=== PATIENT | male | born 1960 | race African-American/Black ===

== ENCOUNTER 2017-09-20 11:19 | Emergency (ER) | payer BC | END 2017-09-20 11:50 | disposition home or self-care (01) | LOC: NAV ERS 11:19 | DX: J06.9 Acute upper respiratory infection, unspecified (principal); M10.9 Gout, unspecified; I10 Essential (primary) hypertension; Z87.891 Personal history of nicotine dependence | CPT/HCPCS: 99283 ==

== ENCOUNTER 2017-12-15 21:03 | Emergency (ER) | payer BC ==
[2017-12-15] MEDS ORDERED: Bupivacaine 0.5% 10 ML VIAL ONE (21:15)
[2017-12-15] MEDS ORDERED: Ibuprofen 800 MG TAB ONE (21:26)
== END 2017-12-15 21:29 | disposition home or self-care (01) ==
LOC: NAV ERS 21:03
DX: K02.9 Dental caries, unspecified (principal); I10 Essential (primary) hypertension; M10.9 Gout, unspecified; Z87.891 Personal history of nicotine dependence
CPT/HCPCS: 99282; J3490

== ENCOUNTER 2017-12-22 18:30 | Emergency (ER) | payer BC ==
[2017-12-22] MEDS ORDERED: Ibuprofen 800 MG TAB ONE (18:54)
== END 2017-12-22 19:06 | disposition home or self-care (01) ==
LOC: NAV ERS 18:30
DX: K04.7 Periapical abscess without sinus (principal); I10 Essential (primary) hypertension; M10.9 Gout, unspecified; Z87.891 Personal history of nicotine dependence
CPT/HCPCS: 99283

== ENCOUNTER 2017-12-30 16:32 | Emergency (ER) | payer BC ==
[2017-12-30] MEDS ORDERED: Furosemide 40 MG/4 ML VIAL ONE (18:02)
--- NOTE | 2017-12-30 18:02 | RAD ---
FRONTAL AND LATERAL IMAGING CHEST 12/30/17 COMPARISON: 09/23/13 HISTORY: Cold-like symptoms with cough since Tuesday. FINDINGS: Old left sided rib fractures are suspected. Pulmonary vascular congestion is noted, mild. No pneumoth orax or pleural fluid is seen and there is no focal consolidation or alveolar edema. IMPRESSION: Mild pulmonary vascular congestion with no focal consolidation or alveolar edema. POS: [facility]
[2017-12-30 18:40] LABS: ALT (SGPT) 31 U/L (8-55); AST (SGOT) 24 U/L (5-34); Albumin 4.3 g/dL (3.5-5.0); Alkaline Phosphatase 85 U/L (40-150); Anion Gap 14 mmol/L (10-20); BUN (Urea Nitrogen) 15 mg/dL (8.4-25.7); Bilirubin, Total 0.4 mg/dL (0.2-1.2); CK (CPK) 373 U/L (30-200); Calc. Creatinine Clearance 0 mL/min (70-130); Calcium 9.8 mg/dL (7.8-10.44); Carbon Dioxide 26 mmol/L (22-29); Chloride 105 mmol/L (98-107); Estimated GFR-MDRD 88; Globulin 3.3 g/dL (2.4-3.5); Glucose 96 mg/dL (70-105); Protein, Total 7.6 g/dL (6.0-8.3); Sodium 141 mmol/L (136-145)
[2017-12-30 18:41] LABS: CKMB 3.9 ng/mL (0-6.6); Troponin I 0.017 ng/mL (< 0.028)
[2017-12-30 18:45] LABS: Hemoglobin 12.6 g/dL (14.0-18.0); Mean Corpuscular HGB CONC 32.6 g/dL (32.0-36.0); Mean Corpuscular Hemoglobin 29.5 pg (27.0-31.0); Mean Corpuscular Volume 90.7 fl (80.0-94.0); Mean Platelet Volume 7.8 fL (7.4-10.4); Platelet Count 199 thou/uL (130-400); Red Blood Cell (RBC) Count 4.26 mill/uL (4.70-6.10); White Blood Cell (WBC) Count 11.8 thou/uL (4.8-10.8)
[2017-12-30] MEDS ORDERED: Azithromycin 250 MG TAB ONE (19:17)
[2017-12-30 19:19] LABS: Band 4 % (5-11); Eosinophils 1 % (0-10); Hypochromia SLIGHT = 6-15 cells (100X) (0-5/hpf); Lymphocytes 15 % (21-51); MDiff Complete? YES; Monocytes 4 % (0-10); Neutrophil 76 % (42-75); PLT Morphology Comment Appears Adequate
[2017-12-30 19:34] LABS: Manual Diff?? YES
== END 2017-12-30 19:20 | disposition home or self-care (01) ==
LOC: NAV ERS 16:32
DX: J20.9 Acute bronchitis, unspecified (principal); I10 Essential (primary) hypertension; M10.9 Gout, unspecified; Z87.891 Personal history of nicotine dependence; Z79.899 Other long term (current) drug therapy
CPT/HCPCS: 71046; 80053; 82553; 83880; 84484; 85025; 85379; 87804; 93005; 94640; 96374; J1940; J7620

== ENCOUNTER 2018-01-12 19:02 | Emergency (ER) | payer BC ==
[2018-01-12] MEDS ORDERED: Naproxen 500 MG TAB ONE (19:28)
== END 2018-01-12 19:36 | disposition home or self-care (01) ==
LOC: NAV ERS 19:02
DX: M17.11 Unilateral primary osteoarthritis, right knee (principal); R00.0 Tachycardia, unspecified; I10 Essential (primary) hypertension; Z87.891 Personal history of nicotine dependence
CPT/HCPCS: 99282

== ENCOUNTER 2018-02-15 18:09 | Emergency (ER) | payer BC | END 2018-02-15 18:50 | disposition home or self-care (01) | LOC: NAV ERS 18:09 | DX: M17.11 Unilateral primary osteoarthritis, right knee (principal); G89.29 Other chronic pain; I10 Essential (primary) hypertension; Z79.899 Other long term (current) drug therapy; Z87.891 Personal history of nicotine dependence | CPT/HCPCS: 99283 ==

== ENCOUNTER 2018-04-27 03:45 | Emergency (ER) | payer BC | END 2018-04-27 04:04 | disposition home or self-care (01) | LOC: NAV ERS 03:45 | DX: M25.562 Pain in left knee (principal); I10 Essential (primary) hypertension; M10.9 Gout, unspecified; Z87.891 Personal history of nicotine dependence | CPT/HCPCS: 99283 ==

== ENCOUNTER 2018-05-29 08:27 | Emergency (ER) | payer BC | END 2018-05-29 09:34 | disposition home or self-care (01) | LOC: NAV ERS 08:27 | DX: M25.561 Pain in right knee (principal); I10 Essential (primary) hypertension; M10.9 Gout, unspecified; Z87.891 Personal history of nicotine dependence | CPT/HCPCS: 99283 ==

== ENCOUNTER 2018-11-29 08:05 | Emergency (ER) | payer BC | END 2018-11-29 08:48 | disposition home or self-care (01) | LOC: NAV ERS 08:05 | DX: R10.13 Epigastric pain (principal); I10 Essential (primary) hypertension; Z87.891 Personal history of nicotine dependence | CPT/HCPCS: 99283 ==

== ENCOUNTER 2019-03-16 20:01 | Emergency (ER) | payer BC ==
[2019-03-16] MEDS ORDERED: predniSONE 20 MG TAB ONE (20:39)
== END 2019-03-16 20:44 | disposition home or self-care (01) ==
LOC: NAV ERS 20:01
DX: J30.9 Allergic rhinitis, unspecified (principal); I10 Essential (primary) hypertension; M10.9 Gout, unspecified; M19.90 Unspecified osteoarthritis, unspecified site; Z87.891 Personal history of nicotine dependence
CPT/HCPCS: 99283; J7512

== ENCOUNTER 2019-07-12 17:20 | Emergency (ER) | payer BC ==
[2019-07-12 17:55] LABS: Bilirubin Negative (Negative); Blood, Urine Trace (Negative); Clarity Clear (Clear); Glucose, Urine (Dipstick) Negative (Negative); Leukocyte Negative (Negative); Nitrite Negative (Negative); Protein, Urine (Dipstick) Negative (Neg-Trace); Urobilinogen 0.2 mg/dL (Less than 2)
[2019-07-12 18:14] LABS: #Basophils 0.1 thou/uL (0.0-0.2); #Eosinphils 0.2 thou/uL (0.0-0.7); #Lymphocytes 1.5 thou/uL (1.20-3.40); #Monocytes 0.7 thou/uL (0.11-0.59); #Neutrophils 4.3 thou/uL (1.40-6.50); %Basophils 0.9 % (0.0-1.0); %Eosinophils 2.5 % (0.0-10.0); %Lymphocytes 22.2 % (21.0-51.0); %Monocytes 10.5 % (0.0-10.0); %Neutrophils 63.9 % (42.0-75.0); Hemoglobin 14.3 g/dL (14.0-18.0); Mean Corpuscular HGB CONC 32.2 g/dL (32.0-36.0); Mean Corpuscular Hemoglobin 29.9 pg (27.0-31.0); Mean Corpuscular Volume 92.9 fL (78.0-98.0); Mean Platelet Volume 8.8 fL (7.4-10.4); Platelet Count 234 thou/uL (130-400); RBC Distribution Width 12.1 % (11.5-14.5); Red Blood Cell (RBC) Count 4.77 mill/uL (4.70-6.10); White Blood Cell (WBC) Count 6.7 thou/uL (4.8-10.8)
[2019-07-12 18:16] LABS: Bacteria/HPF Rare-Few HPF (None Seen); RBC/HPF 0-3 HPF (0-3); WBC/HPF 0-3 HPF (0-3)
--- NOTE | 2019-07-12 18:28 | RAD ---
TWO VIEWS OF THE CHEST: 07/12/19 COMPARISON: 12/30/17 HISTORY: Cough and congestion with pain. FINDINGS: No pneumothorax, pleural fluid, focal consolidation, or alveolar edema. Heart and mediastinal contour s are stable. Stable increased linear interstitial density. Old left sided rib fractures are again se en. IMPRESSION: No acute findings. Chronic findings as above. POS: [facility]
== END 2019-07-12 18:29 | disposition home or self-care (01) ==
LOC: NAV ERS 17:20
DX: J01.90 Acute sinusitis, unspecified (principal); I10 Essential (primary) hypertension; M10.9 Gout, unspecified; M19.90 Unspecified osteoarthritis, unspecified site; Z87.891 Personal history of nicotine dependence
CPT/HCPCS: 71046; 81003; 81015; 85025; 87804

== ENCOUNTER 2019-08-01 04:00 | Emergency (ER) | payer BC ==
[2019-08-01 04:28] LABS: #Eosinphils 0.1 thou/uL (0.0-0.7); #Lymphocytes 1.3 thou/uL (1.20-3.40); #Monocytes 0.5 thou/uL (0.11-0.59); #Neutrophils 3.2 thou/uL (1.40-6.50); %Basophils 0.2 % (0.0-1.0); %Eosinophils 2.3 % (0.0-10.0); %Lymphocytes 24.5 % (21.0-51.0); %Monocytes 9.5 % (0.0-10.0); %Neutrophils 63.5 % (42.0-75.0); Hemoglobin 13.4 g/dL (14.0-18.0); Mean Corpuscular HGB CONC 32.4 g/dL (32.0-36.0); Mean Corpuscular Hemoglobin 30.1 pg (27.0-31.0); Mean Corpuscular Volume 92.8 fL (78.0-98.0); Mean Platelet Volume 7.6 fL (7.4-10.4); Platelet Count 207 thou/uL (130-400); RBC Distribution Width 12.5 % (11.5-14.5); Red Blood Cell (RBC) Count 4.45 mill/uL (4.70-6.10); White Blood Cell (WBC) Count 5.1 thou/uL (4.8-10.8)
[2019-08-01 04:41] LABS: ALT (SGPT) 39 U/L (8-55); AST (SGOT) 32 U/L (5-34); Albumin 4.4 g/dL (3.5-5.0); Alkaline Phosphatase 79 U/L (40-110); Anion Gap 15 mmol/L (10-20); BUN (Urea Nitrogen) 21 mg/dL (8.4-25.7); Bilirubin, Total 0.2 mg/dL (0.2-1.2); Calc. Creatinine Clearance 0 mL/min (70-130); Calcium 9.8 mg/dL (7.8-10.44); Carbon Dioxide 23 mmol/L (22-29); Chloride 107 mmol/L (98-107); Estimated GFR-MDRD Greater than 90; Globulin 3.2 g/dL (2.4-3.5); Glucose 129 mg/dL (70-105); Potassium 4.1 mmol/L (3.5-5.1); Protein, Total 7.6 g/dL (6.0-8.3); Sodium 141 mmol/L (136-145)
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
== END 2019-08-01 06:30 | disposition home or self-care (01) ==
LOC: NAV ERS 04:00
DX: S20.219A Contusion of unspecified front wall of thorax, initial encounter (principal); I10 Essential (primary) hypertension; M10.9 Gout, unspecified; M19.90 Unspecified osteoarthritis, unspecified site; Z87.891 Personal history of nicotine dependence; V89.2XXA Person injured in unspecified motor-vehicle accident, traffic, initial encounter
CPT/HCPCS: 71045; 71260; 72125; 80053; 84484; 85025; 93005

== ENCOUNTER 2019-09-14 12:42 | Emergency (ER) | payer BC ==
[2019-09-14] MEDS ORDERED: Ketorolac Tromethamine 60 MG/2 ML VIAL ONE (13:42)
[2019-09-14] MEDS ORDERED: predniSONE 20 MG TAB ONE (13:42)
[2019-09-14] MEDS ORDERED: Acetaminophen/Codeine 30-300mg Tablet ONE (13:42)
== END 2019-09-14 14:17 | disposition home or self-care (01) ==
LOC: NAV ERS 12:42
DX: M10.9 Gout, unspecified (principal); I10 Essential (primary) hypertension; Z87.891 Personal history of nicotine dependence
CPT/HCPCS: 96372; 99283; J1885; J7512

== ENCOUNTER 2021-03-19 17:12 | Emergency (ER) | payer BC ==
[2021-03-20 07:34] LABS: SARS-CoV-2 PCR by NAA Not Detected (NotDetected)
== END 2021-03-19 17:45 | disposition home or self-care (01) ==
LOC: NAV ERS 17:12
DX: Z20.822 Contact with and (suspected) exposure to COVID-19 (principal); I10 Essential (primary) hypertension; E11.9 Type 2 diabetes mellitus without complications; Z87.891 Personal history of nicotine dependence; Z79.84 Long term (current) use of oral hypoglycemic drugs
CPT/HCPCS: 99283; U0003; U0005

== ENCOUNTER 2021-04-11 22:52 | Emergency (ER) | payer BC ==
[2021-04-11] MEDS ORDERED: Naproxen 500 MG TAB ONE (23:47)
== END 2021-04-11 23:55 | disposition home or self-care (01) ==
LOC: NAV ERS 22:52
DX: S86.112A Strain of other muscle(s) and tendon(s) of posterior muscle group at lower leg level, left leg, initial encounter (principal); I10 Essential (primary) hypertension; E11.9 Type 2 diabetes mellitus without complications; Z87.891 Personal history of nicotine dependence; Z79.84 Long term (current) use of oral hypoglycemic drugs; Z79.899 Other long term (current) drug therapy; X58.XXXA Exposure to other specified factors, initial encounter
CPT/HCPCS: 99283

== ENCOUNTER 2021-07-31 10:54 | Emergency (ER) | payer BC ==
[~2021-07-31 10:54] MED LIST: Iopamidol 370 76% 100 ML VIAL ONE
[2021-07-31] MEDS ORDERED: Sodium Chloride 0.9% 1,000 ML ONE ×3 (11:21→17:54)
[2021-07-31] MEDS ORDERED: Pantoprazole 40 MG VIAL ONE (11:36)
[2021-07-31 11:47] LABS: ALT (SGPT) 47 U/L (8-55); AST (SGOT) 36 U/L (5-34); Alkaline Phosphatase 83 U/L (40-110); Anion Gap 14 mmol/L (10-20); BUN (Urea Nitrogen) 18 mg/dL (8.4-25.7); Bilirubin, Total 0.4 mg/dL (0.2-1.2); Calc. Creatinine Clearance 0 mL/min (70-130); Calcium 9.4 mg/dL (7.8-10.44); Carbon Dioxide 25 mmol/L (22-29); Chloride 102 mmol/L (98-107); Globulin 4.3 g/dL (2.4-3.5); Glucose 93 mg/dL (70-105); Lipase 20 U/L (8-78); Potassium 4.5 mmol/L (3.5-5.1); Protein, Total 8.3 g/dL (6.0-8.3); Sodium 136 mmol/L (136-145)
[2021-07-31 11:51] LABS: Bilirubin Negative (Negative); Clarity Clear (Clear); Glucose, Urine (Dipstick) Negative (Negative); Ketone, Urine Negative (Negative); Leukocyte Negative (Negative); Nitrite Negative (Negative); Protein, Urine (Dipstick) 30 mg/dL (Neg-Trace); Specific Gravity, Urine 1.025 (1.005-1.030); Urobilinogen 0.2 mg/dL (Less than 2)
[2021-07-31 12:01] LABS: Blood, Urine Negative (Negative)
[2021-07-31 12:03] LABS: Bacteria/HPF Rare-Few HPF (None Seen); RBC/HPF None Seen HPF (0-3); Squamous Epithelial 0-3 HPF (0-3); WBC/HPF None Seen HPF (0-3)
[2021-07-31 12:24] LABS: #Basophils 0.1 thou/uL (0.0-0.2); #Monocytes 1.2 thou/uL (0.11-0.59); #Neutrophils 9.3 thou/uL (1.40-6.50); %Basophils 0.9 % (0.0-1.0); %Eosinophils 0.2 % (0.0-10.0); %Lymphocytes 15.9 % (21.0-51.0); %Monocytes 9.4 % (0.0-10.0); %Neutrophils 73.5 % (42.0-75.0); Mean Corpuscular HGB CONC 32.4 g/dL (32.0-36.0); Mean Corpuscular Hemoglobin 30.5 pg (27.0-31.0); Mean Corpuscular Volume 94.1 fL (78.0-98.0); Mean Platelet Volume 8.5 fL (7.4-10.4); Platelet Count 187 thou/uL (130-400); RBC Distribution Width 11.9 % (11.5-14.5); Red Blood Cell (RBC) Count 3.92 mill/uL (4.70-6.10); White Blood Cell (WBC) Count 12.7 thou/uL (4.8-10.8)
[2021-07-31] MEDS ORDERED: Piperacillin/Tazobactam 3.375 GM VIAL ONE (12:46)
[2021-07-31] MEDS ORDERED: Sodium Chloride 0.9% 100 ML ONE (12:46)
[2021-07-31] MEDS ORDERED: Ondansetron PF 4 MG/2 ML Vial ONE (13:27)
[2021-07-31 16:03] LABS: SARS-CoV-2 NAA Rapid Test DETECTED (NotDetected)
[2021-07-31] MEDS ORDERED: metFORMIN 500 MG TAB ONE (19:56)
[2021-08-01] MEDS ORDERED: metFORMIN 500 MG TAB ONE (08:02)
[2021-08-01] MEDS ORDERED: metFORMIN 500 MG TAB PO SCH (08:30)
[2021-08-01] MEDS ORDERED: glipiZIDE 5 MG TAB PO SCH (08:30)
== END 2021-07-31 11:08 | disposition short-term general hospital (02) ==
LOC: NAV ERS 10:54
DX: U07.1 COVID-19 (principal); R00.0 Tachycardia, unspecified; N28.1 Cyst of kidney, acquired; I10 Essential (primary) hypertension; E11.9 Type 2 diabetes mellitus without complications; E78.00 Pure hypercholesterolemia, unspecified; M19.90 Unspecified osteoarthritis, unspecified site; Z87.891 Personal history of nicotine dependence; Z79.84 Long term (current) use of oral hypoglycemic drugs; Z79.899 Other long term (current) drug therapy
CPT/HCPCS: 74177; 80053; 81003; 81015; 83605; 83690; 85025; 87040; 96365; 96367; 96375; C9113; J1956; J2405; J2543; J3490; J7050; Q9967; U0002

== ENCOUNTER 2021-08-07 12:43 | Emergency (ER) | payer BC | END 2021-08-07 13:15 | disposition home or self-care (01) | LOC: NAV ERS 12:43 | DX: U07.1 COVID-19 (principal); I10 Essential (primary) hypertension; M19.90 Unspecified osteoarthritis, unspecified site; M10.9 Gout, unspecified; Z86.16 Personal history of COVID-19; E11.9 Type 2 diabetes mellitus without complications; Z87.891 Personal history of nicotine dependence; Z79.84 Long term (current) use of oral hypoglycemic drugs; Z79.899 Other long term (current) drug therapy | CPT/HCPCS: 99283 ==

== ENCOUNTER 2022-04-05 04:24 | Emergency (ER) | payer BC ==
[2022-04-05] MEDS ORDERED: Acetaminophen 500 MG TAB ONE (04:59)
[2022-04-05] MEDS ORDERED: Ketorolac Tromethamine 60 MG/2 ML VIAL ONE (04:59)
[2022-04-05 05:28] LABS: #Basophils 0.1 thou/uL (0.0-0.2); #Eosinphils 0.2 thou/uL (0.0-0.7); #Lymphocytes 2.4 thou/uL (1.20-3.40); #Monocytes 0.7 thou/uL (0.11-0.59); #Neutrophils 4.4 thou/uL (1.40-6.50); %Eosinophils 2.6 % (0.0-10.0); %Monocytes 9.1 % (0.0-10.0); %Neutrophils 56.4 % (42.0-75.0); Hemoglobin 12.7 g/dL (14.0-18.0); Mean Corpuscular HGB CONC 30.9 g/dL (32.0-36.0); Mean Corpuscular Hemoglobin 29.9 pg (27.0-31.0); Mean Corpuscular Volume 96.7 fL (78.0-98.0); Mean Platelet Volume 8.2 fL (7.4-10.4); Platelet Count 202 thou/uL (130-400); RBC Distribution Width 12.4 % (11.5-14.5); Red Blood Cell (RBC) Count 4.25 mill/uL (4.70-6.10); White Blood Cell (WBC) Count 7.9 thou/uL (4.8-10.8)
[2022-04-05 05:37] LABS: Anion Gap 15 mmol/L (10-20); BUN (Urea Nitrogen) 19 mg/dL (8.4-25.7); Calc. Creatinine Clearance 0 mL/min (70-130); Calcium 9.3 mg/dL (7.8-10.44); Carbon Dioxide 24 mmol/L (22-29); Chloride 106 mmol/L (98-107); Estimated GFR 93; Glucose 127 mg/dL (70-105); Potassium 4.3 mmol/L (3.5-5.1); Sodium 141 mmol/L (136-145)
== END 2022-04-05 06:17 | disposition home or self-care (01) ==
LOC: NAV ERS 04:24
DX: M17.11 Unilateral primary osteoarthritis, right knee (principal); E11.9 Type 2 diabetes mellitus without complications; E78.5 Hyperlipidemia, unspecified; I10 Essential (primary) hypertension; Z87.891 Personal history of nicotine dependence; Z79.899 Other long term (current) drug therapy; Z79.84 Long term (current) use of oral hypoglycemic drugs
CPT/HCPCS: 36415; 80048; 85025; 85379; 96372; 99283; J1885

== ENCOUNTER 2023-06-27 13:31 | Emergency (ER) | payer BC | END 2023-06-27 14:40 | disposition home or self-care (01) | LOC: NAV ERS 13:31 | DX: J06.9 Acute upper respiratory infection, unspecified (principal); E86.0 Dehydration; E11.9 Type 2 diabetes mellitus without complications; E78.5 Hyperlipidemia, unspecified; I10 Essential (primary) hypertension; Z87.891 Personal history of nicotine dependence; Z79.899 Other long term (current) drug therapy; Z79.84 Long term (current) use of oral hypoglycemic drugs | CPT/HCPCS: 99283 ==

== ENCOUNTER 2023-08-28 06:29 | Emergency (ER) | payer BC ==
[2023-08-28] MEDS ORDERED: Indomethacin 25 mg Capsule ONE (07:05)
== END 2023-08-28 07:09 | disposition home or self-care (01) ==
LOC: NAV ERS 06:29
DX: M10.9 Gout, unspecified (principal); E11.9 Type 2 diabetes mellitus without complications; I10 Essential (primary) hypertension; E78.00 Pure hypercholesterolemia, unspecified; Z79.899 Other long term (current) drug therapy; Z87.891 Personal history of nicotine dependence; Z79.84 Long term (current) use of oral hypoglycemic drugs
CPT/HCPCS: 99283

== ENCOUNTER → 2024-06-13 | Emergency (ER) | payer BC ==
[2024-06-14 23:42] LABS: ALT (SGPT) 26 U/L (8-55); AST (SGOT) 25 U/L (5-34); Alkaline Phosphatase 83 U/L (40-110); Anion Gap 13 mmol/L (10-20); BUN (Urea Nitrogen) 19 mg/dL (8.4-25.7); Bilirubin, Total 0.3 mg/dL (0.2-1.2); Calc. Creatinine Clearance 0 mL/min (70-130); Calcium 9.7 mg/dL (7.6-10.4); Carbon Dioxide 25 mmol/L (23-31); Chloride 103 mmol/L (98-107); Estimated GFR 67; Globulin 3.7 g/dL (2.4-3.5); Glucose 107 mg/dL (80-115); Potassium 4.2 mmol/L (3.5-5.1); Protein, Total 7.7 g/dL (5.8-8.1); Sodium 137 mmol/L (136-145)
[2024-06-14 23:43] LABS: %Eosinophils 3.6 % (0.0-10.0); %Lymphocytes 19.8 % (21.0-51.0); %Monocytes 9.7 % (0.0-10.0); Hematocrit 37.6 % (42.0-52.0); Hemoglobin 12.4 g/dL (14.0-18.0); Mean Corpuscular HGB CONC 33.1 g/dL (32.0-36.0); Mean Corpuscular Hemoglobin 30.1 pg (27.0-31.0); Mean Platelet Volume 7.7 fL (7.4-10.4); Platelet Count 200 10x3/uL (130-400); RBC Distribution Width 12.5 % (11.5-14.5); Red Blood Cell (RBC) Count 4.13 mill/uL (4.70-6.10)
[2024-06-14 23:44] LABS: #Basophils 0.1 thou/uL (0.0-0.2); #Eosinophils 0.3 thou/uL (0.0-0.7); #Lymphocytes 1.8 thou/uL (1.20-3.40); #Monocytes 0.9 thou/uL (0.11-0.59); #Neutrophils 5.9 thou/uL (1.40-6.50); %Basophils 0.1 % (0.0-1.0); Lactic Acid 1.47 mmol/L (0.5-2.2)
== END ==
LOC: NAV ERS 21:46
DX: E86.0 Dehydration (principal); R05.9 Cough, unspecified
CPT/HCPCS: 71046; 80053; 83605; 85025; 87400; 87426; 99283

== ENCOUNTER 2025-03-06 16:18 | Emergency (ER) | payer BC ==
[2025-03-06] MEDS ORDERED: Ibuprofen 800 MG TAB ONE (16:51)
== END 2025-03-06 16:55 | disposition home or self-care (01) ==
LOC: NAV ERS 16:18
DX: M43.6 Torticollis (principal); E11.9 Type 2 diabetes mellitus without complications; E78.00 Pure hypercholesterolemia, unspecified; I10 Essential (primary) hypertension; Z79.84 Long term (current) use of oral hypoglycemic drugs; Z79.899 Other long term (current) drug therapy
CPT/HCPCS: 99283

== ENCOUNTER 2025-06-20 17:10 | Emergency (ER) | payer BC ==
[2025-06-20] MEDS ORDERED: Acetaminophen 500 MG TAB ONE (18:20)
== END 2025-06-20 18:29 | disposition home or self-care (01) ==
LOC: NAV ERS 17:10
DX: M17.12 Unilateral primary osteoarthritis, left knee (principal); I10 Essential (primary) hypertension; E11.9 Type 2 diabetes mellitus without complications; E78.00 Pure hypercholesterolemia, unspecified; Z79.899 Other long term (current) drug therapy; Z79.84 Long term (current) use of oral hypoglycemic drugs
CPT/HCPCS: 96372; 99283; J1885